=== PATIENT | male | born 2000 | race Caucasian/White ===

== ENCOUNTER 2023-09-04 12:59 | Day surgery (SDC) | payer OTHER, SELFPAY ==
[2023-09-04 13:24] VITALS: BP 124/70; PULSE 70; RESP 16; TEMP 36.2; O2SAT 98; BMI 26.6
[2023-09-04] MEDS: LACTATED RINGERS 1,000 ML 150 ML IV (13:30)
--- NOTE | 2023-09-04 13:59 | PM.HP.1 ---
History of Present Illness History of Present Illness Date Patient Seen: 09/04/23 Chief complaint: Dx Colonoscopy w/band ligation Narrative: 23-year-old male with rectal bleeding here for diagnostic colonoscopy possible hemorrhoidal banding. No interval change in health. Please refer to the H and P from June 2023 for further detail. [facility] Social History marital status: unmarried,single household members: friend(s) lives independently: Yes occupational status: employed Smoking Status: Never smoker alcohol intake: current substance use type: does not use Meds Home Medications and Allergies Allergies Allergy/AdvReac Type Severity Reaction Status Date / Time No Known Drug Allergies Allergy Unverified 07/20/23 09:36 Exam Vital Signs (past 8 hours): - 09/04/23 13:24 Temperature 97.1 F L Pulse Rate 70 Respiratory Rate 16 Blood Pressure 124/70 Pulse Oximetry 98 Oxygen Delivery Method Room Air Oxygen Delivery Method Room Air Narrative Exam Narrative: General adult man alert oriented no acute distress Chest nonlabored respiration Extremities warm well perfused Assessment & Plan Assessment and plan (1) Rectal bleeding: Status: Acute Assessment & Plan narrative: The patient requires colorectal screening and colonoscopy is recommended. Technical details were discussed. Risks, benefits, alternatives explained. Risks including but not limited to myocardial infarction, aspiration, bleeding, pain, missed lesion, incomplete examination, need for further radiographic studies, colonic perforation, and need for major abdominal surgery were discussed. All questions were answered to their satisfaction, and they are in agreement with this plan.
--- NOTE | 2023-09-04 14:24 | P.OP.COLON_ITS ---
Operative Date/Time/Diagnoses Date of procedure: 09/04/23 Time of procedure: 14:24 Pre-op diagnosis: Rectal bleeding Procedure & Clinicians Study performed: Colonoscopy diagnostic Same procedure as scheduled: Yes Indications: Rectal bleeding Surgeon: Jacky Mcguire Procedure Notes Procedure in detail: The history and physical was performed/updated and the patient is ASA class is 1. The procedure was discussed in detail with the patient. Potential risks complications including infection, bleeding, missed diagnosis, perforation, need for surgery, and were explained. Their questions were answered and informed consent was obtained. Patient was brought to the procedure room and placed standard monitoring equipment. The patient's vital signs were monitored continuously throughout the entire procedure. Prior to starting time-out was performed. The patient was placed in the left lateral recumbent position. Procedural sedation was administered by anesthesia. Examination began with a thorough inspection of the perianal area there was no evidence of fissures, fistulae, external hemorrhoids or cutaneous malignancy. The colonoscopy scope was then placed into the anal canal and was advanced to the cecum, which was identified by the ileocecal valv e, the appendiceal orifice and the confluence of the taenia. The scope was then slowly withdrawn examining colon thoroughly in all directions, irrigating it of any residual stool. The scope was retroflexed within the rectum The patient tolerated the procedure well. They will be discharged once criteria are met. The prep was of good/excellent quality. The withdrawl time was 6 minutes. FINDINGS * Normal healthy colon. Unremarkable colonoscopy. No masses polyps inflammation or significant hemorrhoidal tissue Specimen(s): none sent Impression: Normal colonoscopy Post-procedure Recommendations: High fiber diet Disposition: same day surgery
[2023-09-04 14:26] VITALS: BP 110/63; PULSE 81; RESP 20; TEMP 36.4; O2SAT 96
[2023-09-04 14:31] VITALS: BP 109/65; PULSE 70; RESP 16; O2SAT 98
[2023-09-04 14:36] VITALS: BP 112/73; PULSE 62; RESP 20; O2SAT 99
[2023-09-04 14:41] VITALS: BP 114/72; PULSE 90; RESP 14; O2SAT 98
[2023-09-04 14:51] VITALS: BP 136/63; PULSE 70; RESP 20; TEMP 36.7; O2SAT 98
== END 2023-09-04 15:05 | disposition home or self-care (01) ==
PROVIDERS: Referring Provider Surgery; Visit Provider Surgery
PROC: 0DJD8ZZ Inspection of Lower Intestinal Tract, Via Natural or Artificial Opening Endoscopic (ICD-10-PCS; CPT 45378; principal; 2023-09-04 14:15)
DX: K62.5 Hemorrhage of anus and rectum (principal)
CPT/HCPCS: 45378; J2704